=== PATIENT | male | born 1960 | race Caucasian/White ===

== ENCOUNTER → 2016-08-05 | Outpatient (CLI) | payer OTHER ==
[~2016-08-05] VITALS: Ht 175.3 cm; Wt 122.5 kg
[~2016-08-05] MED LIST: AMIT10TA PO; ASPI325T28 PO; LIDOCAINE 2% INJ 100 MG/5 ML SDV (FOR ANES.) As Ordered ONE; METF500T PO; NS 1,000 ML IV SCH; OMEP40CA2 PO; PROP10TA56 PO; PROPOFOL 200 MG/20 ML VIAL As Ordered ONE; SIMV40TA2 PO
--- NOTE | 2016-08-05 09:24 | ROOR ---
Patient Name: Russ Gregorio Procedure Date: 08/05/2016 9:02 AM Date of : 1960 Age: 56 Room: [facility] Gender: Male Note Status: Finalized Procedure: Colonoscopy Indications: High risk colon cancer surveillance: Personal history of colonic polyps Providers: Paulo Mahmood Jr, MD Referring MD: Natty Johnson DO Requesting Provider: Medicines: Propofol per Anesthesia Complications: No immediate complications. Procedure: Pre-Anesthesia Assessment: - Prior to the procedure, a History and Physical was performed, and patient medications and allergies were reviewed. The patient is competent. The risks and benefits of the procedure and the sedation options and risks were discussed with the patient. All questions were answered and informed consent was obtained. Patient identification and proposed procedure were verified by the physician and the nurse in the pre-procedure area and in the procedure room. Mental Status Examination: alert and oriented. Airway Examination: normal oropharyngeal airway and neck mobility. Respiratory Examination: clear to auscultation. CV Examination: normal. ASA Grade Assessment: II - A patient with mild systemic disease. After reviewing the risks and benefits, the patient was deemed in satisfactory condition to undergo the procedure. The anesthesia plan was to use moderate sedation / analgesia (conscious sedation). Immediately prior to administration of medications, the patient was re-assessed for adequacy to receive sedatives. The heart rate, respiratory rate, oxygen saturations, blood pressure, adequacy of pulmonary ventilation, and response to care were monitored throughout the procedure. The physical status of the patient was re-assessed after the procedure. The Colonoscope was introduced through the anus and advanced to the cecum, identified by appendiceal orifice and ileocecal valve. The colonoscopy was performed without difficulty. The patient tolerated the procedure well. The quality of the bowel preparation was adequate and good. Findings: The perianal and digital rectal examinations were normal. Pertinent negatives include normal sphincter tone, no palpable rectal lesions and no anal lesion or abnormality was detected. The rectum, sigmoid colon, descending colon, transverse colon, hepatic flexure, ascending colon, cecum, appendiceal orifice and ileocecal valve appeared normal. Non-bleeding internal hemorrhoids were found during endoscopy. The hemorrhoids were medium-sized, Grade II (internal hemorrhoids that prolapse but reduce spontaneously) and Grade III (internal hemorrhoids that prolapse but require manual reduction). Impression: - The rectum, sigmoid colon, descending colon, transverse colon, hepatic flexure, ascending colon, cecum, appendiceal orifice and ileocecal valve are normal. - No specimens collected. Recommendation: - Discharge patient to home (ambulatory). - Repeat colonoscopy in 3 years for surveillance. Paulo Mahmood MD Paulo Mahmood Jr, MD 08/05/2016 9:23:39 AM This report has been signed electronically. Number of Addenda: 0 Note Initiated On: 08/05/2016 9:02 AM Estimated Blood Loss: Estimated blood loss: none.
[2016-08-05 09:47] VITALS: BP 126/77
== END | disposition home or self-care (01) ==
LOC: M OPP 07:55
PROVIDERS: ATTEND Surgery
DX: Z12.11 Encounter for screening for malignant neoplasm of colon (principal); K64.1 Second degree hemorrhoids; K64.2 Third degree hemorrhoids; Z86.010 Personal history of colon polyps; I10 Essential (primary) hypertension; E78.00 Pure hypercholesterolemia, unspecified; E11.9 Type 2 diabetes mellitus without complications; K21.9 Gastro-esophageal reflux disease without esophagitis; G47.30 Sleep apnea, unspecified; Z79.899 Other long term (current) drug therapy; Z79.82 Long term (current) use of aspirin; Z79.84 Long term (current) use of oral hypoglycemic drugs; Z88.8 Allergy status to other drugs, medicaments and biological substances; Z87.891 Personal history of nicotine dependence

== ENCOUNTER → 2016-10-06 | Outpatient (CLI) | payer OTHER ==
[~2016-10-06] MED LIST changes: -LIDOCAINE 2% INJ 100 MG/5 ML SDV (FOR ANES.) As Ordered ONE; -NS 1,000 ML IV SCH; -PROPOFOL 200 MG/20 ML VIAL As Ordered ONE
== END ==
LOC: M WUC 16:53
PROVIDERS: ATTEND Physician Assistant
DX: M77.12 Lateral epicondylitis, left elbow (principal)

== ENCOUNTER → 2019-08-15 | Outpatient (CLI) | payer OTHER ==
[~2019-08-15] MED LIST changes: +ASPI-527 PO; -ASPI325T28 PO; -METF500T PO; +METF500T13 PO; -OMEP40CA2 PO; +OMEP40CA97 PO; -SIMV40TA2 PO; +SIMV40TA20 PO
--- NOTE | 2019-08-16 08:58 | REP ---
REASON FOR EXAM: Pain and decreased range of motion. PRIORS: None. There is moderate hypertrophic degenerative change seen involving the acromioclavicular joint. The acromion process is type 2/3. Patchy linear and T2 hypersignal is seen throughout the supraspinatus tendon without evidence of supraspinatus muscle belly atrophy retraction. Patchy T2 hypersignal is seen in the subscapularis tendon. The infraspinatus and teres minor tendons are within normal limits. Biceps tendon resides within the bicipital groove. There is mild patchy T2 hypersignal seen within the proximal biceps tendon outside the bicipital groove. There fluid in the subcoracoid recess. There is no maicol glenohumeral joint effusion. There is evidence of biceps labral complex fraying. There is subtle subchondral focal T2 hypersignal seen in the humeral head particularly superolaterally and anteriorly. There are some linear labral signal changes in the anterior labrum particularly superiorly. The coracohumeral and coracoacromial ligaments are not particularly thickened. IMPRESSION: 1. There is rather advanced appearing supraspinatus tendinitis/tendinosis. I cannot rule out a partial full thickness tear. 2. There is subscapularis tendinitis/tendinosis. 3. There is evidence of some fraying of the biceps labral complex along with hypersignal within the proximal biceps tendon as described above. Biceps tendinitis/tendinosis cannot be ruled out. 4. There are some labral signal changes which could be secondary to a labral tear. If that is of clinical concern, the consider followup with shoulder MRI arthrography. 5. There is mild subchondral cyst formation and mild subchondral edema involving the humeral head as described above. Likely chronic. 6. Abnormal fluid in the subacromial recess. 7. AC joint degenerative changes and acromion process as described above. 8. Other findings as described above. Electronically Signed by Paul Palencia DO 08/16/2019 10:16 A
== END ==
LOC: M RAD 15:59
PROVIDERS: ATTEND Orthopaedic Surgery
DX: S46.011A Strain of muscle(s) and tendon(s) of the rotator cuff of right shoulder, initial encounter (principal); M75.81 Other shoulder lesions, right shoulder; X58.XXXA Exposure to other specified factors, initial encounter; Y92.9 Unspecified place or not applicable; M19.011 Primary osteoarthritis, right shoulder; M25.411 Effusion, right shoulder

== ENCOUNTER 2021-02-18 07:48 | Emergency (ER) | payer OTHER ==
[~2021-02-18] VITALS: Ht 175.3 cm; Wt 125.3 kg
[~2021-02-18 07:48] MED LIST changes: -AMIT10TA PO; +AMIT10TA7 PO; +OMEP40CA4 PO; -OMEP40CA97 PO
[2021-02-18] MEDS ORDERED: JANU100T (07:59)
[2021-02-18] MEDS ORDERED: SIMV10TA21 (07:59)
[2021-02-18] MEDS ORDERED: METF-838 (07:59)
[2021-02-18 09:44] LABS: BASO # 0.1 10^3/uL (0.0-0.2); BASO % 0.5 % (0.0-1.0); EOS # 0.1 10^3/uL (0.0-0.5); EOS % 1.3 % (0.0-3.0); HEMATOCRIT 54.2 % (42.0-52.0); HEMOGLOBIN 18.6 g/dl (13.5-17.5); LYMPH # 2.6 10^3/uL (1.5-5.0); LYMPH % 26.3 % (24.0-44.0); MEAN CORPUSCULAR HEMOGLOBIN 30.6 pg (27.0-33.0); MEAN CORPUSCULAR HGB CONC 34.3 g/dl (32.0-36.5); MEAN CORPUSCULAR VOLUME 89.3 fl (80.0-96.0); MONO # 0.9 10^3/uL (0.0-0.8); MONO % 8.7 % (2.0-8.0); NEUTROPHILS # 6.3 10^3/uL (1.5-8.5); NEUTROPHILS % 62.9 % (36.0-66.0); PLATELET COUNT, AUTOMATED 239 10^3/uL (150-450); RED BLOOD COUNT 6.07 10^6/uL (4.30-6.10); WHITE BLOOD COUNT 10.1 10^3/uL (4.0-10.0)
--- OUTSIDE RECORDS SUMMARY | 2021-02-18 09:47 | CCD | Continuity of Care Document ---
Author Author Russ PRO Organization Unknown Address [address] [address] Phone [phone] Care Team Providers Care Physiotherapy Assistant Name Role Phone Zahraa Mcbride AUTM [phone] Natty Pro DO AUTM Unavailable Problems Active Problems Provider Date Headache Natty Pro DO Onset: 07/14/2012 Migraine Natty Pro DO Onset: 08/07/2012 Social History Type Date Description Comments Sex Unknown ETOH Use Denies alcohol use Tobacco Use Start: Unknown End: Unknown Patient is a former smoker Allergies, Adverse Reactions, Alerts Active Allergies Criticality Reaction | Severity Comments Date Topiramate Unable to assess criticality caused kidne y stones 09/27/2016 Inactive Allergies NKDA Unable to assess criticality 05/06/2009 Medications Active Medications SIG Qnty Indications Ordering Provide r Date Januvia 100mg Tablets Take One Tablet By Mouth Every Day 90tabs Natty Pro DO 01/02/2021 Aspirin Ec Low Dose 81mg Tablets D R once daily 30tabs Natty Pro DO 11/07/2017 Propranolol HCL 20mg Tablets Take One Tablet By Mouth Twice A Day 180tabs Natty Pro DO 09/16 Metformin HCL ER 500mg Tablets ER 24HR Take 2 Tablets By Mouth Every Morning With Breakfast And Take 2 Tablets AT Night 360tabs Natty Pro DO 10/24/2015 Amitriptyline HCL 10mg Tablets Take One Tablet By Mouth AT Bedtime 90tabs Natty Pro DO 04/21 Ibuprofen 200mg Tablets as needed for headache Natty Pro DO 03/17/2015 Simvastatin 10mg Tablets Take One Tablet By Mouth AT Bedtime 90tabs Natty Pro DO 07/31/2012 Omeprazole 40mg Capsules Take One Capsule By Mouth Every Day 90caps Natty Pro,DO 01/19 Medications Administered in Office Medication SIG Qnty Indications Ordering Provider Date Immunization Adminstration,1 Vaccine/Tox oid Injection Natty Elizabeth,DO 01/10/2020 Immunization Adminstration,1 Vaccine/Tox oid Injection Natty Pro,DO 02/19/2019 Immunization Adminstration,1 Vaccine/Tox oid Injection Natty Pro,DO 03/27/2018 Immunizations CPT Code Status Date Vaccine Lot # [id number] Given 01/10/2020 Influenza Vaccin e Quadrivalent Preser/Antibiotic Free Im Use [id number] [id number] Given 02/19/2019 Influenza Vaccin e Quadrivalent Preser/Antibiotic Free Im Use [id number] 17060 Given 03/27/2018 Influenza Virus Vaccine, Quadrivalent (Cciiv4), Derived From 6 Refused 02/22/2017 Influenza Vaccin e Quadrivalent Preser/Antibiotic Free Im Use Vital Signs Date Vital Result Comment 01/02/2021 3:32pm BP Systolic 116 mmHg RT Arm BP Diastolic 80 mmHg RT Arm Heart Rate 88 /min Height 69 inches 5'9" Weight 281.38 lb BMI (Body Mass Index) 41.5 kg/m2 06/30/2020 10:52am BP Systolic 116 mmHg BP Diastolic 78 mmHg Heart Rate 74 /min Height 69 inches 5'9" Weight 284.00 lb BMI (Body Mass Index) 41.9 kg/m2 Results Test Acquired Date Facility Test Result H/L Range Note A1c 12/31/2020 [facility] Datastage Architect: BONIFACIO Orellana [id number] [phone] Hba1c 7.5 % High <5.7 1 Est Avg Glucose 169 mg/dL High 60 - 110 Basic Metabolic Panel 12/31/2020 [facility] Datastage Architect: BONIFACIO Orellana [id number] [phone] Glucose 147 mg/dL High 74 - 99 2 BUN 15 mg/dL 7 - 18 Creatinine 0.9 mg/dL 0.6 - 1.3 Sodium 141 mEq/L 136 - 145 Potassium 4.0 mEq/L 3.5 - 5.1 Chloride 104 mEq/L 98 - 107 Carbon Dioxide 31 mEq/L 21 - 32 Calcium 9.4 mg/dL 8.5 - 10.1 GFR >= 60 mL/min >60 GFR >= 60 mL/min >60 3 Microalbumin/Creatinine Urine 12/31/2020 [facility] Datastage Architect: Dr Edwardo Morrison [place] [id number] [phone] Microalbumin Urine 10.3 mg/L 1.3 - 20.0 Urine Creatinine 128.7 mg/dL High 30.0 - 125.0 Microalb/Creat Ratio 8.0 ug/mg 0.0 - 30.0 1 Lab Result Notes: Pre-Diabetes 5.7 - 6.4 % Diabetes = or > 6.5% 2 100-125 mg/dL PRE-DIABET ES/FASTING >126 mg/dL DIABETES/FASTING 3 CHRONIC KIDNEY DISEASE STAGI NG PER NKF STAGE I & II GFR >= 60 NORMAL TO MILDLY DECREASED STAGE III GFR 30-59 MODERATELY DECREASED STAGE IV GFR 15-29 SEVERELY DECREASED STAGE V GFR <15 VERY LITTLE GFR LEFT ESRD GFR <15 ON DIRECTOR OF EMAIL MARKETING Procedures Date Code Description Status 01/02/2021 41043 Office/Outpatient Established Mo d MDM 30-39 Min Completed 08/05/2016 [id number] Colonoscopy Completed 06/25/2014 [id number] Colonoscopy Completed 05/09/2014 [id number] Colonoscopy Completed Medical Devices Description No Information Available Encounters Type Date Location Provider Dx Diagnosis Office Visit 01/02/2021 3:30p [facility] Natty Pro DO E11.9 Type 2 diabetes mellitus without complications Z87.442 Personal history of urinary calculi E78.5 Hyperlipidemia, unspecified G43.909 Migraine, unsp, not intracta ble, without status migrainosus E66.01 Morbid (severe) obesity due to excess calories Z68.41 Body mass index [BMI] 40.0-4 4.9, adult Assessments Date Code Description Provider 01/02/2021 E11.9 Type 2 diabetes mellitus without complications Natty Pro DO 01/02/2021 Z87.442 Personal history of urinary calc siena Natty Pro DO 01/02/2021 E78.5 Hyperlipidemia, unspecified Santos Pro DO 01/02/2021 G43.909 Migraine, unspecified, not intra ctable, without status migra Natty Pro, 01/02/2021 E66.01 Morbid (severe) obesity due to e xcess calories Natty Pro DO 01/02/2021 Z68.41 Body mass index [BMI]40.0-44.9, adult Natty Pro DO 12/31/2020 E11.9 Type 2 diabetes mellitus without complications Natty Pro DO 12/31/2020 E11.9 Type 2 diabetes mellitus without complications Lab Schedule Plan of Treatment Future Appointment(s):* 07/02/2021 8:20 am - Natty Pro DO at [facility] 01/02/2021 - Natty Pro DO* E11.9 Type 2 diabetes mellitus without complications * Z87.442 Personal history of urinary calculi * E78.5 Hyperlipidemia, unspecified * G43.909 Migraine, unspecified, not intractable, without status migra * E66.01 Morbid (severe) obesity due to excess calories * Z68.41 Body mass index [BMI]40.0-44.9, adult * All * New Medication:* Januvia 100 mg - Take One Tablet By Mouth Every Day Functional Status Description No Information Available Mental Status Description No Information Available Referrals Description No Information Available
--- OUTSIDE RECORDS SUMMARY | 2021-02-18 09:47 | CCD | Continuity of Care Document ---
Author Author Lab Schedule, Russ Ayon Organization Unknown Address [address] [address] Phone Unavailable Care Team Providers Care Army Manager Name Role Phone Zahraa Mcbride AUTM [phone] Natty Johnson DO AUTM Unavailable Problems Active Problems Provider Date Headache Natty Johnson DO Onset: 07/14/2012 Migraine Natty Johnson DO Onset: 08/07/2012 Social History Type Date [...] SIG Qnty Indications Ordering Provide r Date Flomax 0.4mg Capsules 1 by mouth every day 30caps Natty Johnson DO 01/10/2020 Naproxen 500mg Tablets 1 by mouth twice a day with food for 10 days then as needed. 20tabs Natty Johnson DO 06/12/2019 Januvia 50mg Tablets Take One Tablet By Mouth Every Day 90tabs Natty Johnson DO 08/16/2018 Aspirin Ec Low Dose 81mg Tablets D R once daily 30tabs Natty Johnson DO 11/07/2017 Propranolol HCL 20mg Tablets Take One Tablet By Mouth Twice A Day 180tabs Natty Johnson DO 09/16 Metformin HCL ER 500mg Tablets ER 24HR Take 2 Tablets By Mouth Every Morning With Breakfast And Take 2 Tablets AT Night 360tabs Natty Johnson DO 10/24/2015 Amitriptyline HCL 10mg Tablets Take One Tablet By Mouth AT Bedtime 90tabs Natty Johnson DO 04/21 Ibuprofen 200mg Tablets as needed for headache Natty Johnson,DO 03/17/2015 Simvastatin 10mg Tablets Take One Tablet By Mouth AT Bedtime 90tabs Natty Johnson,DO 07/31/[address] Take One Capsule By Mouth Every Day 90caps Natty Johnson,DO 01/19 Medications Administered in Office Medication SIG Qnty Indications Ordering Provider Date Immunization Adminstration,1 Vaccine/Tox oid Injection Natty Johnson,DO 01/10/2020 Immunization Adminstration,1 Vaccine/Tox oid Injection Natty Johnson,DO 02/19/2019 Immunization Adminstration,1 Vaccine/Tox oid Injection Natty Johnson,DO 03/27/2018 Immunizations CPT Code Status Date Vaccine Lot # [id number] Given 01/10/2020 Influenza Vaccin e Quadrivalent Preser/Antibiotic Free Im Use [id number] 26840 Given 02/19/2019 Influenza Vaccin e Quadrivalent Preser/Antibiotic Free Im Use [id number] [id number] Given 03/27/2018 Influenza Virus Vaccine, Quadrivalent (Cciiv4), Derived From 4 Refused 02/22/2017 Influenza Vaccin e Quadrivalent Preser/Antibiotic Free Im Use Vital Signs Date Vital Result Comment 06/30/2020 10:52am BP Systolic 116 mmHg BP Diastolic 78 mmHg Heart Rate 74 /min Height 69 inches 5'9" Weight 284.00 lb BMI (Body Mass Index) 41.9 kg/m2 01/10/2020 2:59pm BP Systolic 118 mmHg BP Diastolic 70 mmHg Heart Rate 85 /min Height 69 inches 5'9" Weight 278.00 lb O2 % BldC Oximetry 97 % RM Air BMI (Body Mass Index) 41.0 kg/m2 Results Test Acquired Date Facility Test Result H/L Range Note Laboratory test finding 12/31/2020 [facility] Director Visual: [place] [id number] [phone] A1c <pending> Procedures Date Code Description Status 08/05/2016 [id number] Colonoscopy Completed 06/25/2014 [id number] Colonoscopy Completed 05/09/2014 [id number] Colonoscopy Completed Medical Devices Description No Information Available Encounters Description No Information Available Assessments Description No Information Available Plan of Treatment Future Appointment(s):* 01/02/2021 3:30 pm - Natty Johnson DO at [facility] 06/30/2020 - Natty Johnson DO* E11.9 Type 2 diabetes mellitus without complications * Z87.442 Personal history of urinary calculi * E78.5 Hyperlipidemia, unspecified * G43.909 Migraine, unspecified, not intractable, without status migra * E66.01 Morbid (severe) obesity due to excess calories * Z68.41 Body mass index [BMI]40.0-44.9, adult * Z13.89 Encounter for screening for other disorder Functional Status Description No Information Available Mental Status Description No Information Available Referrals Description No Information Available
--- OUTSIDE RECORDS SUMMARY | 2021-02-18 09:47 | CCD | Continuity of Care Document ---
Author Author Lab Schedule, Russ Ayon Organization Unknown Address [address] [address] Phone Unavailable Care Team Providers Care Tamping Machine Operator Road Forms Name Role Phone Zahraa Mcbride AUTM [phone] Natty Johnson DO AUTM Unavailable Problems Active [...] Mouth Every Day 90tabs Natty Johnson DO 01/02/2021 Aspirin Ec Low Dose 81mg [...] 200mg Tablets as needed for headache Natty Johnson DO 03/17/2015 Simvastatin 10mg Tablets Take One Tablet By Mouth AT Bedtime 90tabs Natty Johnson, 07/31/[address] Take One Capsule By Mouth Every Day 90caps Natty Elizabeth,DO 01/19 Medications Administered in Office Medication SIG Qnty Indications Ordering Provider Date Immunization Adminstration,1 Vaccine/Tox oid Injection Natty Johnson,DO 01/10/2020 Immunization Adminstration,1 Vaccine/Tox oid Injection Natty Elizabeth,DO 02/19/2019 Immunization Adminstration,1 Vaccine/Tox oid Injection Natty Elizabeth,DO 03/27/2018 Immunizations CPT Code Status Date Vaccine Lot # [id number] Given 01/10/2020 Influenza Vaccin e Quadrivalent Preser/Antibiotic Free Im Use [id number] 14231 Given 02/19/2019 Influenza Vaccin e Quadrivalent Preser/Antibiotic Free Im Use 017246 40576 Given 03/27/2018 Influenza Virus Vaccine, Quadrivalent (Cciiv4), Derived From 7 Refused 02/22/2017 Influenza Vaccin e Quadrivalent Preser/Antibiotic [...] Test Result H/L Range Note A1c 12/31/2020 [facility] Basin Tender: Dr Edwardo Morrison [place], [place] [id number] [phone] Hba1c 7.5 % High <5.7 1 Est Avg Glucose 169 mg/dL High 60 - 110 Basic Metabolic Panel 12/31/2020 [facility] Basin Tender: Dr Edwardo Morrison [place], [place] [id number] [phone] Glucose 147 mg/dL High 74 - 99 [...] 60 mL/min >60 3 Microalbumin/Creatinine Urine 12/31/2020 [facility] Basin Tender: [place] [address] [phone] Microalbumin Urine 10.3 mg/L 1.3 - 20.0 [...] LITTLE GFR LEFT ESRD GFR <15 ON COMMERCIAL LITIGATION ASSOCIATE Procedures Date Code Description Status 08/05/2016 [id number] Colonoscopy Completed 06/25/2014 [id number] Colonoscopy Completed 05/09/2014 [id number] Colonoscopy Completed Medical Devices Description No Information Available Encounters Description No Information Available Assessments Date Code Description Provider 01/02/2021 E11.9 Type 2 diabetes mellitus without complications Natty Johnson,DO 01/02/2021 Z87.442 Personal history of urinary calc siena Natty Johnson,DO 01/02/2021 E78.5 Hyperlipidemia, unspecified Santos Johnson,DO 01/02/2021 G43.909 Migraine, unspecified, not intra ctable, without status migra Natty Johnson,DO 01/02/2021 E66.01 Morbid (severe) obesity due to e xcess calories Natty Johnson,DO 01/02/2021 Z68.41 Body mass index [BMI]40.0-44.9, adult Natty Johnson,DO 12/31/2020 E11.9 Type 2 diabetes mellitus without complications Natty Johnson,DO 12/31/2020 E11.9 Type 2 diabetes mellitus without complications Lab Schedule Plan of Treatment Future Appointment(s):* 07/02/2021 8:20 am - Natty Johnson DO at [facility] 01/02/2021 - Natty Johnson DO* E11.9 Type 2 [...]
--- OUTSIDE RECORDS SUMMARY | 2021-02-18 09:47 | CCD | Continuity of Care Document ---
Author Author Russ PRO Organization Unknown Address [address] [address] Phone [phone] Care Team Providers Care Electric Motor Mechanic Name Role Phone Zahraa Mcbride AUTM [phone] Natty Pro DO AUTM Unavailable Problems Active [...] CPT Code Status Date Vaccine Lot # [id number] Given 01/10/2020 Influenza Vaccin e Quadrivalent Preser/Antibiotic Free Im Use [id number] 25376 Given 02/19/2019 Influenza Vaccin e Quadrivalent Preser/Antibiotic Free Im Use 825179 48341 Given 03/27/2018 Influenza Virus Vaccine, Quadrivalent (Cciiv4), Derived From 9 Refused 02/22/2017 Influenza Vaccin e Quadrivalent Preser/Antibiotic [...] Test Result H/L Range Note A1c 12/31/2020 [facility] Assembly Machine Tender: BONIFACIO Orellana [id number] [phone] Hba1c 7.5 % High <5.7 1 Est Avg Glucose 169 mg/dL High 60 - 110 Basic Metabolic Panel 12/31/2020 [facility] Assembly Machine Tender: BONIFACIO Orellana [id number] [phone] Glucose 147 mg/dL High 74 - 99 [...] 60 mL/min >60 3 Microalbumin/Creatinine Urine 12/31/2020 [facility] Assembly Machine Tender: Dr Edwardo Morrison [place] [id number] [phone] Microalbumin Urine 10.3 mg/L 1.3 - 20.0 [...] LITTLE GFR LEFT ESRD GFR <15 ON BLOWING ENGINEER Procedures Date Code Description Status 08/05/2016 [id number] Colonoscopy Completed 06/25/2014 [id number] Colonoscopy Completed 05/09/2014 [id number] Colonoscopy Completed Medical Devices Description No Information Available Encounters Description No Information Available Assessments Description No Information Available Plan of Treatment No Information Available Functional Status Description No Information Available Mental Status Description No Information Available Referrals Description No Information Available
--- OUTSIDE RECORDS SUMMARY | 2021-02-18 09:47 | CCD | Continuity of Care Document ---
Author Author Lab Schedule, Russ Ayon Organization Unknown Address [address] [address] Phone Unavailable Care Team Providers Care Corporate Tax Preparer Name Role Phone Zahraa Mcbride AUTM [phone] Natty Johnson DO AUTM Unavailable Problems Active [...] Tablet By Mouth AT Bedtime 90tabs Natty Romanogs,DO 07/31/[address] Take One Capsule By Mouth Every Day 90caps Natty Johnson,DO 01/19 Medications Administered in Office Medication SIG Qnty Indications Ordering Provider Date Immunization Adminstration,1 Vaccine/Tox oid Injection Natty Johnson,DO 01/10/2020 Immunization Adminstration,1 Vaccine/Tox oid Injection Natty Johnson,DO 02/19/2019 Immunization Adminstration,1 Vaccine/Tox oid Injection Natty Johnson,DO 03/27/2018 Immunizations CPT Code Status Date Vaccine Lot # [id number] Given 01/10/2020 Influenza Vaccin e Quadrivalent Preser/Antibiotic Free Im Use [id number] 67321 Given 02/19/2019 Influenza Vaccin e Quadrivalent Preser/Antibiotic Free Im Use [id number] 58591 Given 03/27/2018 Influenza Virus Vaccine, Quadrivalent (Cciiv4), Derived From 8 Refused 02/22/2017 Influenza Vaccin e Quadrivalent Preser/Antibiotic [...] Test Result H/L Range Note A1c 12/31/2020 [facility] Maintenance Groundman: BONIFACIO Orellana [id number] [phone] Hba1c 7.5 % High <5.7 1 Est Avg Glucose 169 mg/dL High 60 - 110 Basic Metabolic Panel 12/31/2020 [facility] Maintenance Groundman: BONIFACIO Orellana [id number] [phone] Glucose 147 mg/dL High 74 - 99 [...] 60 mL/min >60 3 Microalbumin/Creatinine Urine 12/31/2020 [facility] Groundman: [place] [address] [phone] Microalbumin Urine 10.3 mg/L 1.3 - 20.0 [...] LITTLE GFR LEFT ESRD GFR <15 ON CATTLE MANAGER Procedures Date Code Description Status 08/05/2016 [id number] Colonoscopy Completed 06/25/2014 [id number] Colonoscopy Completed 05/09/2014 [id number] Colonoscopy Completed Medical Devices Description No Information Available Encounters Description No Information Available Assessments Description No Information Available Plan of Treatment Future Appointment(s):* 01/02/2021 3:30 pm - [facility] 06/30/2020 - Natty Johnson DO* E11.9 [...]
--- OUTSIDE RECORDS SUMMARY | 2021-02-18 09:48 | CCD | Continuity of Care Document ---
Author Author Lab Schedule, Russ Ayon Organization Unknown Address [address] [address] Phone Unavailable Care Team Providers Care Metal Pourer Name Role Phone Zahraa Mcbride AUTM [phone] Natty Johnson DO AUTM Unavailable Problems Active [...] CPT Code Status Date Vaccine Lot # [id number] Given 01/10/2020 Influenza Vaccin e Quadrivalent Preser/Antibiotic Free Im Use [id number] 39701 Given 02/19/2019 Influenza Vaccin e Quadrivalent Preser/Antibiotic Free Im Use [id number] 73190 Given 03/27/2018 Influenza Virus Vaccine, Quadrivalent (Cciiv4), Derived From 0 Refused 02/22/2017 Influenza Vaccin e Quadrivalent Preser/Antibiotic [...] Note Laboratory test finding 12/31/2020 [facility] Internship: [place] [address] [phone] A1c <pending> Procedures Date Code Description Status 08/05/2016 [id number] Colonoscopy Completed 06/25/2014 [id number] Colonoscopy Completed 05/09/2014 [id number] Colonoscopy Completed Medical Devices Description No Information Available Encounters Description No Information Available Assessments Description No Information Available Plan of Treatment Future Appointment(s):* 01/02/2021 3:30 pm - Natty Johnson DO at [facility] 06/30/2020 - Natty Johnson DO* [...]
--- OUTSIDE RECORDS SUMMARY | 2021-02-18 09:48 | CCD ---
Author Author [facility] Organization [facility] Address Unknown Phone Unavailable Care Team Providers Care Traffic Personnel Supervisor Name Role Phone Maring, Atul PA Unavailable Unavailable Maring, Atul PA Unavailable Unavailable Maring, Atul PA Unavailable Unavailable Maring, Atul PA Unavailable Unavailable Maring, Atul PA Unavailable Unavailable Maring, Atul PA Unavailable Unavailable Maring, Atul PA Unavailable Unavailable Maring, Atul PA Unavailable Unavailable Maring, Atul PA Unavailable Unavailable Maring, Atul PA Unavailable Unavailable Maring, Atul PA Unavailable Unavailable Maring, Atul PA Unavailable Unavailable Maring, Atul PA Unavailable Unavailable Maring, Atul PA Unavailable Unavailable Maring, Atul PA Unavailable Unavailable Maring, Atul PA Unavailable Unavailable NOLVIA DIALLO MD Unavailable Unavailable NOLVIA DIALLO MD Unavailable Unavailable NOLVIA DIALLO MD Unavailable Unavailable NOLVIA DIALLO MD Unavailable Unavailable NOLVIA DIALLO MD Unavailable Unavailable NOLVIA DIALLO MD Unavailable Unavailable NOLVIA DIALLO MD Unavailable Unavailable NOLVIA DIALLO MD Unavailable Unavailable NOLVIA DIALLO MD Unavailable Unavailable NOLVIA DIALLO MD Unavailable Unavailable NOLVIA DIALLO MD Unavailable Unavailable NOLVIA DIALLO MD Unavailable Unavailable NOLVIA DIALLO MD Unavailable Unavailable NOLVIA DIALLO MD Unavailable Unavailable NOLVIA DIALLO MD Unavailable Unavailable NOLVIA DIALLO MD Unavailable Unavailable NOLVIA DIALLO MD Unavailable Unavailable NOLVIA DIALLO MD Unavailable Unavailable NOLVIA DIALLO MD Unavailable Unavailable NOLVIA DIALLO MD Unavailable Unavailable NOLVIA DIALLO MD Unavailable Unavailable NOLVIA DIALLO MD Unavailable Unavailable NOLVIA DIALLO MD Unavailable Unavailable NOLVIA DIALLO MD Unavailable Unavailable NOLVIA DIALLO MD Unavailable Unavailable NOLVIA DIALLO MD Unavailable Unavailable NOLVIA DIALLO MD Unavailable Unavailable NOLVIA DIALLO MD Unavailable Unavailable NOLVIA DIALLO MD Unavailable Unavailable NOLVIA DIALLO MD Unavailable Unavailable NOLVIA DIALLO MD Unavailable Unavailable NOLVIA DIALLO MD Unavailable Unavailable NOLVIA DIALLO MD Unavailable Unavailable Elizabeth, Natty DO Unavailable Unavailable Elizabeth, Natty DO Unavailable Unavailable Elizabeth, Natty DO Unavailable Unavailable Elizabeth, Natty DO Unavailable Unavailable Elizabeth, Natty DO Unavailable Unavailable Elizabeth, Natty DO Unavailable Unavailable Elizabeth, Natty DO Unavailable Unavailable Elizabeth, Natty DO Unavailable Unavailable Elizabeth, Natty DO Unavailable Unavailable Elizabeth, Natty DO Unavailable Unavailable Elizabeth, Natty DO Unavailable Unavailable Elizabeth, Natty DO Unavailable Unavailable Elizabeth, Natty DO Unavailable Unavailable Elizabeth, Natty DO Unavailable Unavailable Elizabeth, Natty DO Unavailable Unavailable Elizabeth, Natty DO Unavailable Unavailable Elizabeth, Natty DO Unavailable Unavailable Elizabeth, Natty DO Unavailable Unavailable Elizabeth, Natty DO Unavailable Unavailable Elizabeth, Natty DO Unavailable Unavailable Elizabeth, Natty DO Unavailable Unavailable Elizabeth, Natty DO Unavailable Unavailable Elizabeth, Natty DO Unavailable Unavailable Elizabeth, Natty DO Unavailable Unavailable Elizabeth, Natty DO Unavailable Unavailable Elizabeth, Natty DO Unavailable Unavailable Elizabeth, Natty DO Unavailable Unavailable Elizabeth, Natty DO Unavailable Unavailable Elizabeth, Natty DO Unavailable Unavailable Elizabeth, Natty DO Unavailable Unavailable Elizabeth, Natty DO Unavailable Unavailable Elizabeth, Natty DO Unavailable Unavailable Elizabeth, Natty DO Unavailable Unavailable Elizabeth, Natty DO Unavailable Unavailable Elizabeth, Natty DO Unavailable Unavailable Elizabeth, Natty DO Unavailable Unavailable Elizabeth, Natty DO Unavailable Unavailable Elizabeth, Natty DO Unavailable Unavailable Elizabeth, Natty DO Unavailable Unavailable Elizabeth, Natty DO Unavailable Unavailable Elizabeth, Natty DO Unavailable Unavailable Elizabeth, Natty DO Unavailable Unavailable Elizabeth, Natty DO Unavailable Unavailable Elizabeth, Natty DO Unavailable Unavailable Elizabeth, Natty DO Unavailable Unavailable Elizabeth, Natty DO Unavailable Unavailable Elizabeth, Natty DO Unavailable Unavailable Elizabeth, Natty DO Unavailable Unavailable Elizabeth, Natty DO Unavailable Unavailable Elizabeth, Natty DO Unavailable Unavailable Elizabeth, Natty DO Unavailable Unavailable Elizabeth, Natty DO Unavailable Unavailable Elizabeth, Natty DO Unavailable Unavailable Elizabeth, Natty DO Unavailable Unavailable Elizabeth, Natty DO Unavailable Unavailable Elizabeth, Natty DO Unavailable Unavailable Elizabeth, Natty DO Unavailable Unavailable Elizabeth, Natty DO Unavailable Unavailable Elizabeth, Natty DO Unavailable Unavailable Elizabeth, Natty DO Unavailable Unavailable Elizabeth, Natty DO Unavailable Unavailable Elizabeth, Natty DO Unavailable Unavailable Elizabeth, Natty DO Unavailable Unavailable Elizabeth, Natty DO Unavailable Unavailable Elizabeth, Natty DO Unavailable Unavailable Elizabeth, Natty DO Unavailable Unavailable Elizabeth, Natty DO Unavailable Unavailable Elizabeth, Natty DO Unavailable Unavailable Elizabeth, Natty DO Unavailable Unavailable Elizabeth, Natty DO Unavailable Unavailable Elizabeth, Natty DO Unavailable Unavailable Elizabeth, Natty DO Unavailable Unavailable Elizabeth, Natty DO Unavailable Unavailable Elizabeth, Natty DO Unavailable Unavailable Trickey, J Zahraa PA Unavailable Unavailable Trickey, J Zahraa PA Unavailable Unavailable Trickey, J Zahraa PA Unavailable Unavailable Trickey, J Zahraa PA Unavailable Unavailable Trickey, J Zahraa PA Unavailable Unavailable Trickey, J Zahraa PA Unavailable Unavailable Trickey, J Zahraa PA Unavailable Unavailable Trickey, J Zahraa PA Unavailable Unavailable Trickey, J Zahraa PA Unavailable Unavailable Trickey, J Zahraa PA Unavailable Unavailable Trickey, J Zahraa PA Unavailable Unavailable Trickey, J Zahraa PA Unavailable Unavailable Trickey, J Zahraa PA Unavailable Unavailable Trickey, J Zahraa PA Unavailable Unavailable Trickey, J Zahraa PA Unavailable Unavailable Trickey, J Zahraa PA Unavailable Unavailable Trickey, J Zahraa PA Unavailable Unavailable Trickey, J Zahraa PA Unavailable Unavailable Trickey, J Zahraa PA Unavailable Unavailable Trickey, J Zahraa PA Unavailable Unavailable Trickey, J Zahraa PA Unavailable Unavailable Trickey, J Zahraa PA Unavailable Unavailable Trickey, J Zahraa PA Unavailable Unavailable Trickey, J Zahraa PA Unavailable Unavailable Trickey, J Zahraa PA Unavailable Unavailable Trickey, J Zahraa PA Unavailable Unavailable Trickey, J Zahraa PA Unavailable Unavailable Trickey, J Zahraa PA Unavailable Unavailable Trickey, J Zahraa PA Unavailable Unavailable Trickey, J Zahraa PA Unavailable Unavailable Trickey, J Zahraa PA Unavailable Unavailable Trickey, J Zahraa PA Unavailable Unavailable Trickey, J Zahraa PA Unavailable Unavailable Trickey, J Zahraa PA Unavailable Unavailable Trickey, J Zahraa PA Unavailable Unavailable Trickey, J Zahraa PA Unavailable Unavailable Trickey, J Zahraa PA Unavailable Unavailable Trickey, J Zahraa PA Unavailable Unavailable Trickey, J Zahraa PA Unavailable Unavailable Trickey, J Zahraa PA Unavailable Unavailable Trickey, J Zahraa PA Unavailable Unavailable Trickey, J Zahraa PA Unavailable Unavailable Trickey, J Zahraa PA Unavailable Unavailable Trickey, J Zahraa PA Unavailable Unavailable Trickey, J Zahraa PA Unavailable Unavailable Trickey, J Zahraa PA Unavailable Unavailable Trickey, J Zahraa PA Unavailable Unavailable Trickey, J Zahraa PA Unavailable Unavailable Trickey, J Zahraa PA Unavailable Unavailable Kincaid, M Barratt PA Unavailable Unavailable Kincaid, M Barratt PA Unavailable Unavailable Kincaid, M Barratt PA Unavailable Unavailable Kincaid, M Barratt PA Unavailable Unavailable Kincaid, M Barratt PA Unavailable Unavailable Ikncaid, M Barratt PA Unavailable Unavailable Kincaid, M Barratt PA Unavailable Unavailable Kincaid, M Barratt PA Unavailable Unavailable Kincaid, M Barratt PA Unavailable Unavailable Kincaid, M Barratt PA Unavailable Unavailable Kincaid, M Barratt PA Unavailable Unavailable Kincaid, M Barratt PA Unavailable Unavailable Kincaid, M Barratt PA Unavailable Unavailable Kincaid, M Barratt PA Unavailable Unavailable Kincaid, M Barratt PA Unavailable Unavailable Kincaid, M Barratt PA Unavailable Unavailable Kincaid, M Barratt PA Unavailable Unavailable Kincaid, M Barratt PA Unavailable Unavailable Kincaid, M Barratt PA Unavailable Unavailable Kincaid, M Barratt PA Unavailable Unavailable Kincaid, M Barratt PA Unavailable Unavailable Kincaid, M Barratt PA Unavailable Unavailable Kincaid, M Barratt PA Unavailable Unavailable Kincaid, M Barratt PA Unavailable Unavailable Kincaid, M Barratt PA Unavailable Unavailable Kincaid, M Barratt PA Unavailable Unavailable Kincaid, M Barratt PA Unavailable Unavailable Kincaid, M Barratt PA Unavailable Unavailable Kincaid, M Barratt PA Unavailable Unavailable Re-disclosure Warning The records that you are about to access may contain information from federally-assisted alcohol or drug abuse programs. If such information is present, then the following federally mandated warning applies: This information has been disclosed to you from records protected by federal confidentiality rules (42 CFR part 2). The federal rules prohibit you from making any further disclosure of this information unless further disclosure is expressly permitted by the written consent of the person to whom it pertains or as otherwise permitted by 42 CFR part 2. A general authorization for the release of medical or other information is NOT sufficient for this purpose. The Federal rules restrict any use of the information to criminally investigate or prosecute any alcohol or drug abuse patient.The records that you are about to access may contain highly sensitive health information, the redisclosure of which is protected by Article 27-F of the [facility] Public Health law. If you continue you may have access to information: Regarding HIV / AIDS; Provided by facilities licensed or operated by the [facility] Office of Mental Health; or Provided by the [facility] Office for People With Developmental Disabilities. If such information is present, then the following [facility] mandated warning applies: This information has been disclosed to you from confidential records which are protected by state law. State law prohibits you from making any further disclosure of this information without the specific written consent of the person to whom it pertains, or as otherwise permitted by law. Any unauthorized further disclosure in violation of state law may result in a fine or shelter sentence or both. A general authorization for the release of medical or other information is NOT sufficient authorization for further disc losure. Family History Family Member Name Family Member Gender Family Member Status Date o f Status Description Data Source(s) Unknown Unknown Problem [facility] father Unknown Female Problem [facility] ([facility]) Encounters Encounter Providers Location Date Indications Data Source(s ) Outpatient Attender: Atul EWING 02/19/20 07:13:27 AM EDT - 02/18/2021 07:28:56 AM EDT [facility] ([facility] ) Outpatient Attender: Natty Lucia 01/02 03:30:00 PM EDT [facility] ([facility] ) Outpatient Attender: Zahraa EWING Main office - [facility] 07/21/2020 02:00:00 PM EDT [facility] ([facility]) Outpatient Attender: Natty Lucia 06/30 11:00:00 AM EDT [facility] ([facility] ) Outpatient Attender: Robin EWING Physical Therapy 01:45:00 PM EST [facility] ([facility]) OFFICE OUTPATIENT VISIT 15 MINUTES Attender: NOLVIA DIALLO MD Physical Therapy 04/24/2020 08:00:00 AM EST [facility] ([facility]) Outpatient Attender: Natty Romanochristophe Seymourlogg Amber 01/09 03:00:00 PM EDT [facility] ([facility] ) Immunizations Vaccine Date Status Description Data Source(s) COVID-19 VACCINE Moderna 07/30/2020 12:00:00 AM EDT completed [facility] Vaccine Series Complete: YESThis Data wa s Submitted to [facility] Via [facility]. COVID-19 VACCINE Moderna 07/03/2020 12:00:00 AM EDT completed [facility]SIIS Vaccine Series Complete: NOThis Data was Submitted to [facility] Via [employer]. Influenza, injectable, MDCK, preservative free, lor valent 01/10/2020 03:16:00 PM EDT completed [facility] ([facility]) Medications Medication Brand Name Start Date Product Form Dose Route Admi nistrative Instructions Pharmacy Instructions Status Indications Reaction Description Data Source(s) sitagliptin 100 MG Oral Tablet [Januvia] Januvia 01/02/2021 12:00: 00 AM EDT active [facility] ([facility]) Tamsulosin hydrochloride 0.4 MG Oral Capsule [Flomax] Flomax 01/10/2020 12:00:00 AM EDT ORAL active [facility] ([facility]) Immunization Adminstration,1 Vaccine/Toxoid 01/10/2020 12:00 :00 AM EDT completed [facility] ([facility]) Medication administered onsite Insurance Providers Payer name Policy type / Coverage type Policy ID Covered alliance party ID Covered alliance party's relationship to dan Policy Dan Plan Information [employer] [id number] SP [id number] Tpa/Gamble Eff () Workers Compensation [id number] Self [id number] [employer] Risk Management () Workers Compensation [id number] Self [id number] [employer] Risk MNGT () Workers Compensation [id number] Self [id number] [employer] Risk MGMNT [place] Workers Compensation [id number] Self [id number] Umr (New [employer]) Commercial [id number] Self [id number] UMR [facility] [id number] SP [id number] [facility] Commercial Insurance Co. [id number] Self [id number] [employer]/Umr (Old) Medigap Part B [id number] Self [id number] Umr [employer] Ppo Commercial [id number] Self [id number] [employer] Commercial [id number] Self [id number] Umr [employer] Ppo Commercial [id number] Self [id number] [employer] W/C [id number] SP [id number] [employer] Ppo Commercial [id number] Self [id number] [employer] Ppo Commercial [id number] Self [id number] [employer] Commercial [id number] Self [employer] (pr) Commercial [id number] Self [employer] PPO P UNAVAILABLE [id number] S UNAVAILA BLE [id number] UMR O [id number] S [id number] UMR [facility] [id number] [employer] RISK MANAGEMENT O [id number] O [id number] [employer] PPO O [id number] S [id number] [employer]/Umr (Old) [facility] Part B [id number] Self [id number] [employer]/Umr (Old) [facility] Part B [id number] Self [id number] Umr Commercial [id number] Self [id number] [employer]/Umr (Old) [facility] Part B [id number] Self [id number] Problems, Conditions, and Diagnoses No Information Surgeries/Procedures Procedure Description Date Indications Data Source(s) OFFICE OUTPATIENT VISIT 25 MINUTES 01/02/2021 12:00:00 AM EDT MEDDAVID ([facility]) ARTHROCENTESIS ASPIR&/INJECTION MAJOR JT/BURSA 021 12:00:00 AM EST [facility] ([facility]) Results ID Date Data Source [id number] 12/31/2020 03:23:00 PM EDT [facility] ([facility]) Name Value Range Interpretation Code Description Data Dolores rce(s) Supporting Document(s) Microalb/Creat Ratio 8.0 ug/mg 0.0-30.0 [facility] Urine Creatinine 128.7 mg/dL 30.0-125.0 [facility] ([facility]) Microalbumin Urine 10.3 mg/L 1.3-20.0 [facility] ([facility]) ID Date Data Source [id number] 12/31/2020 03:23:00 PM EDT [facility] ([facility]) Name Value Range Interpretation Code Description Data Dolores rce(s) Supporting Document(s) Glucose [Mass/volume] in Serum or Plasma 147 mg/dL 74-99 [facility] ([facility]) 100-125 mg/dL PRE-DIABETES/FASTING >126 mg/dL DIABETES/FASTING Urea nitrogen [Mass/volume] in Serum or Plasma 15 mg/dL 7-18 [facility] ([facility]) Creatinine 0.9 mg/dL 0.6-1.3 [facility] ([facility]) Potassium [Moles/volume] in Serum or Plasma 4.0 meq/L 3.5-5.1 [facility] ([facility]) Sodium [Moles/volume] in Serum or Plasma 141 meq/L 136-145 [facility] ([facility]) Chloride [Moles/volume] in Serum or Plasma 104 meq/L 98-107 [facility] ([facility]) Calcium [Mass/volume] in Serum or Plasma 9.4 mg/dL 8.5-10.1 [facility] ([facility]) Carbon dioxide, total [Moles/volume] in Serum or Plasma 31 meq/L 21 -32 [facility] Glomerular filtration rate/1.73 sq M pre dicted among non-blacks [Volume Rate/Area] in Serum or Plasma by Creatinine-based formula (MDRD) Laboratory test result [facility] Glomerular filtration rate/1.73 sq M pre dicted among blacks [Volume Rate/Area] in Serum or Plasma by Creatinine-based formula (MDRD) Laboratory test result [facility] <content>CHRONIC KIDNEY DISEASE STAGING PER NKF</content>
<content></content>
<content>STAGE I & II GFR >= 60 NORMAL TO MILDLY DECREASED</content>
<content>STAGE III GFR 30-59 MODERATELY DECREASED</content>
<content>STAGE IV GFR 15-29 SEVERELY DECREASED</content>
<content>STAGE V GFR <15 VERY LITTLE GFR LEFT</content>
<content>ESRD GFR <15 ON DIRECTOR SALES</content>
<content></content> ID Date Data Source [id number] 12/31/2020 03:23:00 PM EDT [facility] ([facility]) Name Value Range Interpretation Code Description Data Dolores rce(s) Supporting Document(s) Hemoglobin A1c/Hemoglobin.total in Blood 7.5 % [facility] Lab Result Notes: Pre-Diabetes 5.7 - 6.4 % Diabetes = or > 6.5% Glucose mean value [Mass/volume] in Blood Estimated fr om glycated hemoglobin 169 mg/dL 60-110 [facility] ([facility] ) ID Date Data Source [id number] 12/31/2020 03:23:00 PM EDT [facility]) Name Value Range Interpretation Code Description Data Dolores rce(s) Supporting Document(s) Hemoglobin A1c/Hemoglobin.total in Blood Laboratory test result [facility] ([facility]) ID Date Data Source [id number] 06/30/2020 11:12:00 AM EDT [facility] ([facility]) Name Value Range Interpretation Code Description Data Dolores rce(s) Supporting Document(s) Cholesterol [Mass/volume] in Serum or Plasma 192 mg/dL 131-200 [facility] ([facility]) Cholesterol in LDL [Mass/volume] in Serum or Plasma by calcu lation 121 CALC 50-159 [facility] ([facility]) Cholesterol in HDL [Mass/volume] in Serum or Plasma 49 mg/dL 35-60 [facility] ([facility]) Triglyceride [Mass/volume] in Serum or Plasma 110 mg/dL 30-150 [facility] ([facility]) ID Date Data Source [id number] 06/30/2020 11:12:00 AM EDT [facility] ([facility]) Name Value Range Interpretation Code Description Data Dolores rce(s) Supporting Document(s) Glucose [Mass/volume] in Serum or Plasma 139 mg/dL 74-99 [facility] ([facility]) 100-125 mg/dL PRE-DIABETES/FASTING >126 mg/dL DIABETES/FASTING Creatinine 1.1 mg/dL 0.6-1.3 [facility] Sodium [Moles/volume] in Serum or Plasma 139 meq/L 136-145 [facility] ([facility]) Urea nitrogen [Mass/volume] in Serum or Plasma 21 mg/dL 7-18 [facility] ([facility]) Chloride [Moles/volume] in Serum or Plasma 99 meq/L 98-107 [facility] ([facility]) Carbon dioxide, total [Moles/volume] in Serum or Plasma 30 meq/L 21 -32 [facility] ([facility]) Potassium [Moles/volume] in Serum or Plasma 4.2 meq/L 3.5-5.1 [facility] ([facility]) Calcium [Mass/volume] in Serum or Plasma 9.5 mg/dL 8.5-10.1 [facility] ([facility]) Alkaline phosphatase isoenzyme [Units/volume] in Serum or Pl asma 81 mg/dL 46-116 [facility] ([facility]) Aspartate aminotransferase [Enzymatic activity/volume] in Serum or Plasma 22 U/L 15-37 [facility] ([facility] ) Alanine aminotransferase [Enzymatic activity/volume] in Seru m or Plasma 34 U/L 12-78 [facility] ([facility]) Total Bilirubin 0.4 mg/dL 0.2-1.0 [facility] ([facility]) A/G Ratio 1.11 CALC 1.00-1.90 [facility] ([facility]) Proteinase 3 Ab [Units/volume] in Serum 7.8 g/dL 6.4-8.2 [facility] ([facility]) Albumin [Mass/volume] in Serum or Plasma 4.1 g/dL 3.4-5.0 [facility] ([facility]) Glomerular filtration rate/1.73 sq M pre dicted among non-blacks [Volume Rate/Area] in Serum or Plasma by Creatinine-based formula (MDRD) Laboratory test result [facility] Glomerular filtration rate/1.73 sq M pre dicted among blacks [Volume Rate/Area] in Serum or Plasma by Creatinine-based formula (MDRD) Laboratory test result [facility] ([facility]) <content>CHRONIC KIDNEY DISEASE STAGING PER NKF</content>
<content></content>
<content>STAGE I & II GFR >= 60 NORMAL TO MILDLY DECREASED</content>
<content>STAGE III GFR 30-59 MODERATELY DECREASED</content>
<content>STAGE IV GFR 15-29 SEVERELY DECREASED</content>
<content>STAGE V GFR <15 VERY LITTLE GFR LEFT</content>
<content>ESRD GFR <15 ON DIRECTOR SALES</content>
<content></content> ID Date Data Source [id number] 06/30/2020 11:12:00 AM EDT [facility] ([facility]) Name Value Range Interpretation Code Description Data Dolores rce(s) Supporting Document(s) Glucose mean value [Mass/volume] in Blood Estimated fr om glycated hemoglobin 154 mg/dL 60-110 [facility] ([facility] ) Hemoglobin A1c/Hemoglobin.total in Blood 7.0 % [facility] Lab Result Notes: Pre-Diabetes 5.7 - 6.4 % Diabetes = or > 6.5% ID Date Data Source [id number] 06/30/2020 11:12:00 AM EDT [facility] ([facility]) Name Value Range Interpretation Code Description Data Dolorse rce(s) Supporting Document(s) Hemoglobin A1c/Hemoglobin.total in Blood Laboratory test result [facility]) ID Date Data Source [id number] 01/11/2020 12:00:00 AM EDT [facility] Natty Johnson DO Patient Name: CHAVEZ [id number] [facility] Date of : 1960[facility] [address] [facility]: [facility] [id number] Fax: [phone] EXAM: CT ABDOMEN & PELVIS WITHOUT CONTRASTCLINICAL INFORMATION: Left flank pain.Comparison 04/04/2008, the only prior.Low dose [address] scanning of the abdomen and pelvis wasobtained without the administration of intravenous contrast.The lung bases are clear and essentially unchanged. There is a tinyincidental calcified granuloma in the superior right middle lobe. This isunchanged.Limited evaluation of the solid intraabdominal organs show diffuse lowdensity throughout the hepatic parenchyma. Limited evaluation of thespleen show no abnormalities. Limited evaluation the pancreas, adrenalglands, and right kidney show no abnormalities. In the left kidney, thereis a 4 mm sized non-obstructing calculus in the interpolar region. Thereis no hydronephrosis or hydroureter on either side and there are noureteroliths or urinary bladder calcifications. There is corpora amylacea. Limited evaluation of the bowel loops and the mesenteries show no grossabnormalities. There is no free fluid or free air. Increased adiposetissue is seen in the left inguinal canal and there is a knuckle of largebowel protruding into the left inguinal canal. There is no evidence of amass or adenopathy. Limited evaluation of the abdominal aorta andparaaortic regions show no gross abnormalities.Bone window technique throughout the exam shows the osseous structures angella stable and intact.IMPRESSION:1. There is a tiny non-obstructing left nephrolith as described above.2. There is diffuse fatty infiltration of the liver.3. Interim development of a left inguinal hernia as described above.4. Other findings as described above.Accredited by the [employer] in [place].REY Julian/Nick you for referring CHAVEZ NICHOLE to our office. Electronically Signed - RENEE ELLINGTON DO 01/11/20 15:41 Name Value Range Interpretation Code Description Data [facility] rce(s) Supporting Document(s) ID Date Data Source [id number] 01/10/2020 02:56:00 PM EDT [facility] ([facility]) Name Value Range Interpretation Code Description Data [facility] rce(s) Supporting Document(s) Microalbumin Urine 3.4 mg/L 1.3-20.0 [facility] ([facility]) Microalb/Creat Ratio 3.2 ug/mg 0.0-30.0 [facility] ([facility]) Urine Creatinine 105.9 mg/dL 30.0-125.0 [facility] ([facility]) ID Date Data Source [id number] 01/08/2020 03:12:00 PM EDT [facility] ([facility]) Name Value Range Interpretation Code Description Data Dolores rce(s) Supporting Document(s) Glucose [Mass/volume] in Serum or Plasma 107 mg/dL 74-99 [facility] ([facility]) 100-125 mg/dL PRE-DIABETES/FASTING >126 mg/dL DIABETES/FASTING Urea nitrogen [Mass/volume] in Serum or Plasma 21 mg/dL 7-18 [facility] ([facility]) Creatinine 1.0 mg/dL 0.6-1.3 [facility] ([facility]) Sodium [Moles/volume] in Serum or Plasma 138 meq/L 136-145 [facility] ([facility]) Chloride [Moles/volume] in Serum or Plasma 101 meq/L 98-107 [facility] ([facility]) Potassium [Moles/volume] in Serum or Plasma 4.2 meq/L 3.5-5.1 [facility] ([facility]) Carbon dioxide, total [Moles/volume] in Serum or Plasma 32 meq/L 21 -32 [facility] ([facility]) Calcium [Mass/volume] in Serum or Plasma 9.5 mg/dL 8.5-10.1 [facility] ([facility]) Glomerular filtration rate/1.73 sq M pre dicted among non-blacks [Volume Rate/Area] in Serum or Plasma by Creatinine-based formula (MDRD) Laboratory test result [facility] Glomerular filtration rate/1.73 sq M pre dicted among blacks [Volume Rate/Area] in Serum or Plasma by Creatinine-based formula (MDRD) Laboratory test result [facility] ([facility]) <content>CHRONIC KIDNEY DISEASE STAGING PER NKF</content>
<content></content>
<content>STAGE I & II GFR >= 60 NORMAL TO MILDLY DECREASED</content>
<content>STAGE III GFR 30-59 MODERATELY DECREASED</content>
<content>STAGE IV GFR 15-29 SEVERELY DECREASED</content>
<content>STAGE V GFR <15 VERY LITTLE GFR LEFT</content>
<content>ESRD GFR <15 ON DIRECTOR SALES</content>
<content></content> ID Date Data Source [id number] 01/08/2020 03:12:00 PM EDT [facility]) Name Value Range Interpretation Code Description Data Dolores rce(s) Supporting Document(s) Hemoglobin A1c/Hemoglobin.total in Blood 6.6 % [facility] ([facility]) Lab Result Notes: Pre-Diabetes 5.7 - 6.4 % Diabetes = or > 6.5% Glucose mean value [Mass/volume] in Blood Estimated fr om glycated hemoglobin 143 mg/dL 60-110 [facility] ([facility] ) Procedure Social History No Information Vital Signs ID Date Data Source UNK Name Value Range Interpretation Code Description Data Source(s) Systolic blood pressure 116 mm[Hg] 116 mm[Hg] [facility] ([facility]) RT Arm Diastolic blood pressure 80 mm[Hg] 80 mm[Hg] [facility] ([facility]) RT Arm Heart rate 88 /min 88 /min [facility] ([facility]) Body height 69 [in_i] 69 [in_i] [facility] ([facility]) 5'9" Body weight 281.38 [lb_av] 281.38 [lb_av] [facility] Body mass index (BMI) [Ratio] 41.5 kg/m2 41.5 k g/m2 [facility] ([facility]) Systolic blood pressure 110 mm[Hg] 110 mm[Hg] [facility] ([facility], ) Diastolic blood pressure 70 mm[Hg] 70 mm[Hg] [facility] ([facility], ) Heart rate 68 /min 68 /min [facility] ([facility], ) Respiratory rate 20 /min 20 /min [facility] ( [facility], ) Systolic blood pressure 116 mm[Hg] 116 mm[Hg] [facility] ([facility]) Diastolic blood pressure 78 mm[Hg] 78 mm[Hg] [facility] ([facility]) Heart rate 74 /min 74 /min [facility] ([facility]) Body height 69 [in_i] 69 [in_i] [facility] ([facility]) 5'9" Body weight 284.00 [lb_av] 284.00 [lb_av] [facility] ([facility]) Body mass index (BMI) [Ratio] 41.9 kg/m2 41.9 k g/m2 [facility] ([facility]) Oxygen saturation in Arterial blood by Pulse oximetry 97 % 97 % [facility] ([facility]) Air Body mass index (BMI) [Ratio] 41.0 kg/m2 41.0 k g/m2 [facility] ([facility]) Systolic blood pressure 118 mm[Hg] 118 mm[Hg] [facility] ([facility]) Diastolic blood pressure 70 mm[Hg] 70 mm[Hg] [facility] ([facility]) Heart rate 85 /min 85 /min [facility] ([facility]) Body height 69 [in_i] 69 [in_i] [facility] ([facility]) 5'9" Body weight 278.00 [lb_av] 278.00 [lb_av] CIARA Khan ([facility])
[2021-02-18 10:14] LABS: ALBUMIN 4.1 GM/DL (3.2-5.2); ALT/SGPT 41 U/L (12-78); BILIRUBIN,DIRECT 0.2 MG/DL (0.0-0.2); BILIRUBIN,TOTAL 0.6 MG/DL (0.2-1.0); BLOOD UREA NITROGEN 14 MG/DL (7-18); CALCIUM LEVEL 10.1 MG/DL (8.5-10.1); CARBON DIOXIDE LEVEL 30 MEQ/L (21-32); CHLORIDE LEVEL 104 MEQ/L (98-107); CREATININE FOR GFR 1.01 MG/DL (0.70-1.30); GLOMERULAR FILTRATION RATE > 60.0 (>56); GLUCOSE, FASTING 161 MG/DL (70-100); LIPASE 142 U/L (73-393); POTASSIUM SERUM 4.8 MEQ/L (3.5-5.1); SODIUM LEVEL 137 MEQ/L (136-145); TOTAL PROTEIN 8.2 GM/DL (6.4-8.2)
--- NOTE | 2021-02-18 11:33 | REP ---
INDICATION: upper abd pain, belching. COMPARISON: CT without 01/11/2020 TECHNIQUE: Standard the right upper quadrant sonography FINDINGS: Sonographic evaluation of the right upper quadrant shows the liver with diffuse pattern increased echogenicity consistent with fatty infiltration. The right lobe there is a 8.9 x 6.8 x 6.8 mm cyst which is also seen some capsular on CT. No biliary dilatation or adjacent ascites. Gallbladder is difficult to visualize but it is seen with the no abnormal wall thickening or visible stone. No pericholecystic fluid nor any sonographic Collins sign. Common duct is obscured. Pancreas seen only limited view with that portion of pancreatic head neck and body seen without the mass or ductal dilatation. The right kidney is 12.2 x 7.2 x 5.7 cm. There is an isoechoic zone in the interpolar region laterally 2.5 x 2.6 x 2.2 the cm which has an identical configuration to the renal cortex and sinus contours on CT 14 months ago. No abnormal calcifications. No hydronephrosis, cyst or stone identified. IMPRESSION: 1. Diffuse fatty infiltration of the liver with a 9 mm cystic area right hepatic lobe also seen on recent CT 01/05. No biliary dilatation, solid mass or ascites. 2. Gallbladder difficult to see due to body habitus considerations and difficulty penetrating but that portion of gallbladder visible without wall thickening, mass or stone. No sonographic Collins sign. Common duct is not visible on these images. Likewise pancreas limited in evaluation, those segments seen were unremarkable. 3. The right kidney with isoechoic cortex extending into the renal sinus fat in identical configuration to CT of the 14 months ago. No contour abnormality of the outer cortex or other abnormality in this stable anatomic appearance. <Electronically signed by Santosh Reeves > 02/18/21 1122
[2021-02-18] MEDS ORDERED: PROT1TAB2 PO (11:59)
[2021-02-18] MEDS ORDERED: SUCR1SS PO (11:59)
[2021-02-18 12:02] VITALS: BP 154/90
== END 2021-02-18 12:10 | disposition home or self-care (01) ==
LOC: M ED 07:48
DX: R10.10 Upper abdominal pain, unspecified (principal); E11.9 Type 2 diabetes mellitus without complications; I10 Essential (primary) hypertension; E78.5 Hyperlipidemia, unspecified; Z87.442 Personal history of urinary calculi; K21.9 Gastro-esophageal reflux disease without esophagitis; K76.0 Fatty (change of) liver, not elsewhere classified; K76.89 Other specified diseases of liver; Z79.82 Long term (current) use of aspirin; Z79.899 Other long term (current) drug therapy; Z88.8 Allergy status to other drugs, medicaments and biological substances

== ENCOUNTER → 2021-09-27 | Outpatient (CLI) | payer OTHER ==
[~2021-09-27] MED LIST changes: +ASPI81TA26 PO; +JANU100T PO; +METF-838; +PROT1TAB2 PO; +SIMV10TA21 PO; +SUCR1SS PO
== END ==
LOC: M LABSMTC 08:57
PROVIDERS: ATTEND Anesthesiology
DX: Z01.818 Encounter for other preprocedural examination (principal); Z11.52 Encounter for screening for COVID-19

== ENCOUNTER 2021-10-01 07:47 | Day surgery (SDC) | payer OTHER ==
[~2021-10-01] VITALS: Ht 175.3 cm; Wt 123.7 kg
[~2021-10-01 07:47] MED LIST changes: +LIDOCAINE 2% 100MG/5ML SDV (FOR ANES.) As Ordered ONE; +NS 1,000 ML IV ONE; +propofoL 200 MG/20 ML VIAL As Ordered ONE
[2021-10-01 09:29] VITALS: BP 176/81
== END 2021-10-01 09:38 | disposition home or self-care (01) ==
LOC: M OPP 07:47
PROVIDERS: ATTEND Surgery
DX: Z86.010 Personal history of colon polyps (principal); Z87.442 Personal history of urinary calculi; Z79.02 Long term (current) use of antithrombotics/antiplatelets; Z79.82 Long term (current) use of aspirin; Z79.84 Long term (current) use of oral hypoglycemic drugs; Z79.899 Other long term (current) drug therapy; Z88.8 Allergy status to other drugs, medicaments and biological substances; Z80.1 Family history of malignant neoplasm of trachea, bronchus and lung

== ENCOUNTER 2023-04-29 18:39 | Emergency (ER) | payer OTHER ==
[~2023-04-29] VITALS: Ht 175.3 cm; Wt 120.5 kg
[~2023-04-29 18:39] MED LIST changes: -LIDOCAINE 2% 100MG/5ML SDV (FOR ANES.) As Ordered ONE; -NS 1,000 ML IV ONE; -propofoL 200 MG/20 ML VIAL As Ordered ONE
[2023-04-29] MEDS ORDERED: diazePAM 10MG/2ML SYRINGE IM ONE (22:20)
[2023-04-29] MEDS ORDERED: methylPREDNISolone 125MG 2ML VIAL IM ONE (22:20)
[2023-04-29 23:56] VITALS: BP 163/73; TEMP 97.8; O2SAT 96
[2023-04-30] MEDS ORDERED: MEDR4PAK PO (00:20)
[2023-04-30] MEDS ORDERED: VALI5TAB PO (00:20)
== END 2023-04-30 00:44 | disposition home or self-care (01) ==
LOC: M ED 18:39
DX: M62.830 Muscle spasm of back (principal); M51.36 Other intervertebral disc degeneration, lumbar region; M54.50 Low back pain, unspecified; E11.9 Type 2 diabetes mellitus without complications; K21.9 Gastro-esophageal reflux disease without esophagitis; F41.9 Anxiety disorder, unspecified; E78.5 Hyperlipidemia, unspecified; Z88.8 Allergy status to other drugs, medicaments and biological substances; Z79.82 Long term (current) use of aspirin; Z79.4 Long term (current) use of insulin; Z79.899 Other long term (current) drug therapy
CPT/HCPCS: 72110; 81001; 96372; 99283; J2930; J3360